=== PATIENT | female | born 1995 | race Two or more races ===

== ENCOUNTER 2018-12-16 12:07 | Emergency (ER) | payer OTHER ==
[~2018-12-16] VITALS: Ht 170.2 cm; Wt 68.0 kg
[2018-12-16 12:49] VITALS: BP 112/72
--- NOTE | 2018-12-16 12:52 | NUR ---
ED Nurse Note: pt walked in to ED due to abdominal pain aw nausea and vomiting after drank 8 to 10 glasses of wine last night. pt vomited clear blood tinged saliva at the bed side. AAO x4. respirations even and non-labored noted. skin warm to touch. no open wound noted. will wait for the further order.
--- NOTE | 2018-12-16 13:20 | Emergency Room Report ---
History of Present Illness General Chief Complaint: Vomiting Source: Patient Present Illness HPI 23-year-old female presents to the emergency department complaining of 10 out of 10 in severity epigastric abdominal cramping with multiple episodes of vomiting blood since waking up this morning. Patient states she was drinking heavily last night which is not normal for her and upon awakening she began vomiting first it was while and the second so began to have bright red blood. Patient states that color of the blood is now dark. She denies fevers or chills denies constipation or diarrhea she reports recent travel to [place] but states it was just a layover and she did not eat or drink anything. Denies denies dysuria, hematuria or urinary frequency. Patient denies history of blood dyscrasias or liver disease. Denies hx of alcoholism or GI bleeds. pt. reports recent THC use within last 72 hours but not in the last 24. no aggravating or alleviating factors at this time. pt. reports feeling weak / fatigued. denies dizziness, CP , palpitations, SOB or sudden onset of CARBALLO. Allergies: Coded Allergies: No Known Allergies (Unverified , 12/16/18) Patient History Past Medical History: see triage record Past Surgical History: none Pertinent Family History: none Last Menstrual Period: 5 days Now: No Reviewed Nursing Documentation: PMH: Agreed; PSxH: Agreed Nursing Documentation-PMH Past Medical History: No Stated History Review of Systems All Other Systems: negative except mentioned in HPI Physical Exam Vital Signs Date Time Temp Pulse Resp B/P (MAP) Pulse Ox O2 Delivery O2 Flow Rate FiO2 12/16/18 12:19 97.5 102 20 112/72 99 Room Air Sp02 EP Interpretation: reviewed, normal General Appearance: alert, GCS 15, non-toxic, mild distress - gagging Head: normocephalic, atraumatic Eyes: bilateral eye normal inspection, bilateral eye PERRL ENT: hearing grossly normal, normal voice Neck: full range of motion Respiratory: lungs clear, normal breath sounds, speaking full sentences Cardiovascular #1: regular rate, rhythm Gastrointestinal: soft, non-distended, tenderness - mild epigastric TTP Rectal: deferred Musculoskeletal: back normal, gait/station normal, normal range of motion, non- tender Neurologic: alert, oriented x3, responsive, motor strength/tone normal, sensory intact, speech normal, grossly normal Psychiatric: judgement/insight normal Skin: normal color, no rash, warm/dry, well hydrated Medical Decision Making PA Attestation Dr. Conde is my supervising Physician whom patient management has been discussed with. Diagnostic Impression: Primary Impression: Gastritis Qualified Codes: K29.20 - Alcoholic gastritis without bleeding ER Course 23-year-old female presents to the emergency department complaining of 10 out of 10 in severity epigastric abdominal cramping with multiple episodes of vomiting blood since waking up this morning. Patient states she was drinking heavily last night which is not normal for her and upon awakening she began vomiting first it was while and the second so began to have bright red blood. Patient states that color of the blood is now dark. She denies fevers or chills denies constipation or diarrhea she reports recent travel to [place] but states it was just a layover and she did not eat or drink anything. Denies denies dysuria, hematuria or urinary frequency. Patient denies history of blood dyscrasias or liver disease. Denies hx of alcoholism or GI bleeds. pt. reports recent THC use within last 72 hours but not in the last 24. no aggravating or alleviating factors at this time. pt. reports feeling weak / fatigued. denies dizziness, CP , palpitations, SOB or sudden onset of CARBALLO. Ddx considered but are not limited to GE, colitis, acute appy, SBO, Cyclical Vomiting secondary to THC, * , esophageal tear , acute blood loss just to name a few. Vital signs: pt. is afebrile, H&PE are most consistent with Gastritis secondary to ETOH consumption, no evidence to suggest acute abdomen on physical exam, not actively vomiting BRB. ORDERS: -CBC: unremarkable, no evidence of acute hemorrhage, elevated WBC's given the pt. is afebrile this is most likely elevated secondary to acute stress reaction from persistent vomiting. -BMP: electrolytes ok -Urine Hcg: Pt. Declines ED INTERVENTIONS: -1000 NS iv hydration, -Zofran 4mg oral fluid challenge-- pt able to tolerate oral fluids after above interventions DISCHARGE: At this time pt. is stable for d/c to home. Will provide printed patient care instructions, and any necessary prescriptions. Care plan and follow up instructions have been discussed with the patient prior to discharge. Labs Test 12/16/18 13:22 White Blood Count 16.5 K/UL (4.8-10.8) Red Blood Count 4.44 M/UL (4.20-5.40) Hemoglobin 13.7 G/DL (12.0-16.0) Hematocrit 41.6 % (37.0-47.0) Mean Corpuscular Volume 94 FL (80-99) Mean Corpuscular Hemoglobin 30.9 PG (27.0-31.0) Mean Corpuscular Hemoglobin Concent 33.0 G/DL (32.0-36.0) Red Cell Distribution Width 11.2 % (11.6-14.8) Platelet Count 258 K/UL (150-450) Mean Platelet Volume 6.8 FL (6.5-10.1) Neutrophils (%) (Auto) % (45.0-75.0) Lymphocytes (%) (Auto) % (20.0-45.0) Monocytes (%) (Auto) % (1.0-10.0) Eosinophils (%) (Auto) % (0.0-3.0) Basophils (%) (Auto) % (0.0-2.0) Sodium Level 140 MMOL/L (136-145) Potassium Level 4.0 MMOL/L (3.5-5.1) Chloride Level 100 MMOL/L (98-107) Carbon Dioxide Level 19 MMOL/L (21-32) Anion Gap 21 mmol/L (5-15) Blood Urea Nitrogen 17 mg/dL (7-18) Creatinine 1.0 MG/DL (0.55-1.30) Estimat Glomerular Filtration Rate > 60 mL/min (>60) Glucose Level 67 MG/DL (74-106) Calcium Level 9.3 MG/DL (8.5-10.1) Last Vital Signs Date Time Temp Pulse Resp B/P (MAP) Pulse Ox O2 Delivery O2 Flow Rate FiO2 12/16/18 12:49 102 20 Room Air 12/16/18 12:49 97.5 112/72 99 Status: improved Disposition: HOME, SELF-CARE Condition: Stable Scripts Pantoprazole* (PROTONIX*) 40 Mg Tablet.dr 40 MG ORAL DAILY for 5 Days, #5 TAB Prov: Bárbara Lisa 12/16/18 Ondansetron Odt* (ZOFRAN ODT*) 4 Mg Tab.rapdis 4 MG BC EVERY 6 HOURS PRN for Nausea & Vomiting, #10 TAB 0 Refills Prov: Bárbara Lisa 12/16/18 Patient Instructions: Nausea and Vomiting, Adult Additional Instructions: Take medications as directed. Follow up with a Primary Care Provider in 3-5 days, even if your symptoms have resolved. --Please review list of primary care clinics, if you do not already have a primary care provider Return sooner to ED if new symptoms occur, or current symptoms become worse. - Please note that this Emergency Department Report was dictated using [employer] assistant teacher technology software, occasionally this can lead to erroneous entry secondary to interpretation by the dictation equipment. Bárbara Lisa Dec 16, 2018 13:20
[2018-12-16 14:11] LABS: HEMATOCRIT 41.6 % (37.0-47.0); HEMOGLOBIN 13.7 G/DL (12.0-16.0); MEAN CORPUSCULAR VOLUME 94 FL (80-99); PLATELET COUNT 258 K/UL (150-450); RED BLOOD COUNT 4.44 M/UL (4.20-5.40); RED CELL DISTRIBUTION WIDTH 11.2 % (11.6-14.8); WHITE BLOOD COUNT 16.5 K/UL (4.8-10.8)
[2018-12-16 14:23] LABS: ANION GAP 21 mmol/L (5-15); BLOOD UREA NITROGEN 17 mg/dL (7-18); CALCIUM 9.3 MG/DL (8.5-10.1); CARBON DIOXIDE 19 MMOL/L (21-32); CHLORIDE 100 MMOL/L (98-107); SODIUM 140 MMOL/L (136-145)
[2018-12-16] MEDS ORDERED: ONDANSETRON ODT4 MG BC (14:33)
[2018-12-16] MEDS ORDERED: PROTONIX40 MG ORAL (14:33)
--- NOTE | 2018-12-16 14:40 | NUR ---
ED Nurse Note: Patient refused urine test to be done. patient states "i want to go home i am for sure not " GEOVANY Granger aware
--- NOTE | 2018-12-16 14:45 | NUR ---
ER DISCHARGE NOTE: Patient is cleared to be discharged per ERMD, pt is aox4, on room air, with stable vital signs. pt was given dc and prescription instructions, pt was able to verbalize understanding, pt id band and iv site removed without complications. pt is able to ambulate with steady gait. pt took all belongings.
[2018-12-16 15:06] VITALS: BP 118/75
== END 2018-12-16 14:45 | disposition home or self-care (01) ==
LOC: EMR 12:56
DX: K29.20 Alcoholic gastritis without bleeding (principal)
CPT/HCPCS: 36415; 80048; 85007; 85025; 96360; 99284